=== PATIENT | female | born 1975 | race Asian ===

== ENCOUNTER 2018-06-13 11:20 | Outpatient (CLI) | payer OTHER | END 2018-06-13 11:21 | disposition home or self-care (01) | LOC: BICMAMMO 11:20 | PROVIDERS: ATTEND Family Medicine | DX: Z12.31 Encounter for screening mammogram for malignant neoplasm of breast (principal) | CPT/HCPCS: 77063; 77067 ==

== ENCOUNTER 2018-12-22 09:28 | Outpatient (CLI) | payer OTHER ==
[2018-12-22 11:03] LABS: Hemoglobin 12.5 g/dL (12.0-16.0); Mean Corpuscular HGB CONC 31.6 g/dL (32.0-36.0); Mean Corpuscular Hemoglobin 26.4 pg (27.0-31.0); Mean Corpuscular Volume 83.7 fL (78.0-98.0); Mean Platelet Volume 9.4 fL (7.4-10.4); Platelet Count 239 thou/uL (130-400); RBC Distribution Width 12.7 % (11.5-14.5); Red Blood Cell (RBC) Count 4.73 mill/uL (4.20-5.40); White Blood Cell (WBC) Count 6.6 thou/uL (4.8-10.8)
== END 2018-12-22 09:29 | disposition home or self-care (01) ==
LOC: LABBT 09:28
PROVIDERS: ATTEND Obstetrics & Gynecology
DX: Z01.812 Encounter for preprocedural laboratory examination (principal); D25.9 Leiomyoma of uterus, unspecified
CPT/HCPCS: 85027

== ENCOUNTER 2018-12-23 05:57 | Observation (INO) | payer OTHER ==
[2018-12-22 11:11] LABS: BHCG - Serum Negative (NEGATIVE); Pregs Control Background? CLEAR/WHITE (CLR/WHITE); Pregs Control Bar Appear? YES (CONTROL BAR)
[2018-12-23] MEDS ORDERED: Famotidine/PF 20 mg/2ml Vial ONE (06:13)
[2018-12-23] MEDS ORDERED: Gabapentin 300 MG CAP ONE (06:13)
[2018-12-23] MEDS ORDERED: ceFAZolin Sodium (SDC) 2 GM/100 ML BAG ONE (06:14)
[2018-12-23] MEDS ORDERED: CeleCOXIB 100 MG CAP ONE (06:14)
[2018-12-23] MEDS ORDERED: Bupivacaine HCl 0.5%/Epinephrine 1:200,000/PF 30 ml Vial ONE (06:32)
[2018-12-23] MEDS ORDERED: Fentanyl 100 MCG/2 ML VIAL ONE (07:00)
[2018-12-23] MEDS ORDERED: Tranexamic Acid 1,000 MG/10 ML VIAL ONE (07:34)
[2018-12-23] MEDS ORDERED: Tranexamic Acid 1,000 MG in Sodium Chloride 0.9% 250 ML 250 ML IVPB SCH (08:00)
[2018-12-23] MEDS ORDERED: Ropivacaine 0.2% 550 ML 750 ML NERVE BLCK SCH ×2 (08:00→08:15)
[2018-12-23] MEDS ORDERED: Promethazine HCl 25 MG/ML VIAL SLOW IVP PRN (09:18)
[2018-12-23] MEDS ORDERED: Ketorolac Tromethamine 30 MG/ML VIAL IVP PRN (09:18)
[2018-12-23] MEDS ORDERED: HYDROmorphone 2 MG/ML VIAL SLOW IVP PRN (09:18)
[2018-12-23] MEDS ORDERED: Ondansetron HCl/PF 4 MG/2 ML Vial IVP PRN (09:18)
[2018-12-23] MEDS ORDERED: Promethazine HCl 25 MG/ML VIAL IM PRN (09:18)
[2018-12-23] MEDS ORDERED: Meperidine HCl/PF 25 MG/ML VIAL SLOW IVP PRN (09:18)
[2018-12-23] MEDS ORDERED: Ondansetron PF 4 MG/2 ML Vial IVP PRN (10:43)
[2018-12-23] MEDS ORDERED: diphenhydrAMINE 25 MG CAP PO PRN (10:43)
[2018-12-23] MEDS ORDERED: HYDROcodone/Acetaminophen 5/325 mg Tablet PO PRN (10:43)
[2018-12-23] MEDS ORDERED: Morphine 4 MG/ML VIAL SLOW IVP PRN (10:43)
[2018-12-23] MEDS ORDERED: Bisacodyl 10 MG SUPP PR PRN (10:43)
[2018-12-23] MEDS ORDERED: Zolpidem Tartrate 5 MG TAB PO PRN (10:43)
--- NOTE | 2018-12-23 11:50 | OP ---
DATE OF PROCEDURE: 12/23/2018 PREOPERATIVE DIAGNOSES: 1. Fibroid uterus. 2. Infertility. POSTOPERATIVE DIAGNOSES: 1. Fibroid uterus. 2. Dense pelvic adhesive disease. 3. Endometriosis. PROCEDURES PERFORMED: Robotic assist myomectomy and placement of ON-Q pump. DRILLING FIELD PROFESSIONAL: Maddi Bates MD ANESTHESIA: SHYAMA per Dr. Meredith. COMPLICATIONS: None. EBL: 100 mL. URINE OUTPUT: 1100 mL. OPERATIVE FINDINGS: 1. Enlarged fibroid uterus with dominant 5 to 6 cm fibroid and multiple small fibroids. 2. Dense pelvic adhesive disease with the bladder adhered to the anterior aspect of the uterus and the colon densely adhered to the pelvic sidewalls bilaterally and to the uterus and cul-de-sac. 3. Endometriotic lesions noted. DESCRIPTION OF PROCEDURE: The patient was taken back to the OR with IV fluids running. When she was in the OR, general anesthesia was obtained. The patient was then placed in low dorsal lithotomy position and the abdomen and vagina were prepped and draped in normal fashion for gynecologic laparoscopy. Friedman catheter was placed into bladder and the bladder was drained. An operative speculum was placed into the vagina and cervix was visualized and grasped with single-tooth tenaculum. Cervix was serially dilated to allow for placement of a Lilli-Clifford manipulator tip. The Lilli-Clifford manipulator tip was placed into the uterus, but the intrauterine balloon was not able to inflate. The Lilli-Clifford manipulator was then removed and a Hulka clamp was placed instead. Surgeon's gloves were then changed and attention was turned to the laparoscopic portion of the case. Beginning approximately 2 cm above the umbilicus, local anesthesia was injected into the skin. A 12 mm skin incision was then made with a scalpel. Veress needle was placed through the skin incision and the abdomen was insufflated without difficulty. A 12 mm trocar was then placed through this incision. The laparoscope was placed through the trocar with the above findings noted. The patient was placed in Trendelenburg position. The right and left lower quadrant 8 mm robotic trocars were placed, followed by a right upper quadrant 11 mm trocar placed under direct visualization and using similar technique. After the trocars were all placed, the 12 mm trocar skin incision was extended to approximately 2 cm through the skin to the level of the fascia. A 12 mm trocar was removed and a GelPOINT Mini retractor was placed through this incision. GelPOINT was assembled with a 12 mm trocar through it and capped over the Mini retractor. The abdomen was then insufflated again. The robot was docked to the patient's bedside and all instruments were directed under laparoscopic view. Dense adhesions were noted over the bladder to the uterus. The fallopian tubes and ovaries were difficult to visualize due to the dense pelvic adhesions along the sidewall and the colon was densely adhered to the posterior aspect of the uterus. The fundal portion of the uterus was free from any adhesion, was examined closely and endometriotic lesions were noted throughout the uterine serosa and the bladder reflection. Dilute vasopressin was introduced through a spinal needle through the abdominal wall into the uterine fundus and approximately 10 mL were injected into the most prominent area, where the myomectomy was planned to begin. After vasopressin was injected , monopolar cautery was used to create a semilunar incision over the uterine fundus. Next, with a series of different dissection techniques including monopolar cautery, bipolar cautery, hydrodissection, and blunt dissection, the dominant fundal fibroid was resected from the myometrium. The fibroid was noted to be partially degenerating based on its appearance during the dissection. While removing the dominant 5 to 6 cm fundal fibroid, two smaller approximate 1 to 2 cm fibroids were easily removed. After the myomectomies were complete, the uterine myometrium was irrigated and suctioned dry. Some areas of bleeding were controlled with bipolar cautery. The myometrium was then reapproximated with STRATAFIX suture in a running fashion. After the myometrial layer was closed and reapproximated, the serosal edge of the uterus was reapproximated in an imbricating running stitch with hemostasis noted at the end of the closure. After the myometrium and serosa were closed, the uterus and pelvis were irrigated and suctioned dry. No areas of bleeding were noted. A layer of Tisseal was applied laparoscopically over the uterus and areas of the lysis of adhesions. After this was completed, the laparoscopic bag, which had been placed into the abdomen at the beginning of the case was opened up and the three fibroid specimens were placed into the bag under direct visualization. An ON-Q catheter tip was placed through the abdominal wall and the catheter was pulled down to the anterior aspect of the uterus. The ON-Q catheter tip was primed. The laparoscopic bag was then retrieved through the supraumbilical port after the GelPOINT was removed. All gas was released from the abdomen and the ports were removed. The bag including the three fibroid specimens was then brought out through the supraumbilical port. The Antione retractor was removed. The incisions were irrigated and cleaned. The fascial layer of the supraumbilical port was closed with Vicryl suture in a running fashion. All four skin incisions were closed with Monocryl suture and dressed with Dermabond dressing. The patient tolerated the procedure well. The operative findings were shared with her family after the case. The plan for observation and likely discharge later this evening versus tomorrow morning. Job ID: [id number] [facility]
[2018-12-23] MEDS ORDERED: Ketorolac Tromethamine 30 MG/ML VIAL IVP SCH (12:00)
[2018-12-23] MEDS ORDERED: Fioricet 325/50/40 mg Tablet PO PRN (12:44)
[2018-12-23] MEDS ORDERED: NORETHINDRONE FS SCH (12:45)
[2018-12-23] MEDS ORDERED: ESTRADIOL FS SCH (12:45)
[2018-12-23] MEDS ORDERED: Fluticasone Propionate Nasal Spray 16 gm Bottle NASAL SCH (13:00)
[2018-12-23] MEDS: Sodium Chloride 0.9% 1,000 ML IV SCH ×2 (14:27→22:05)
[2018-12-23] MEDS: Ketorolac Tromethamine 30 MG/ML VIAL IVP SCH ×2 (16:22→22:07)
[2018-12-23] MEDS: Simethicone Chewable 80 MG TAB PO PRN (20:04)
[2018-12-23] MEDS: Azelastine 137 MCG/Spray 30 ML NS SCH (22:11)
[2018-12-24] MEDS: Ketorolac Tromethamine 30 MG/ML VIAL IVP SCH ×2 (03:24→10:56)
[2018-12-24] MEDS: Sodium Chloride 0.9% 1,000 ML IV SCH ×2 (03:31→11:57)
[2018-12-24 08:02] VITALS: BP 116/70; TEMP 97.9
[2018-12-24] MEDS: Simethicone Chewable 80 MG TAB PO PRN (08:15)
--- NOTE | 2018-12-24 08:17 | PDOC.EVN ---
Event Note - Event Note Event Note: POD1 Doing well, pain controlled but request removal of OnQ pump, she thinks it is irritating her skin. Tolerating a regular diet, voiding without difficulty and ambulating. VS WNL GEN NAD Abd soft, NTTP, incisions CDI x 4, ONQ pump removed and disposed Ext no edema A/P: POD1 sp RA myomectomy, doing well. Plan for DC home today, will FU with me in 2 weeks and FU with [facility] after post op care completed.
[2018-12-24] MEDS: HYDROcodone/Acetaminophen 5/325 mg Tablet PO PRN ×2 (08:24→11:49)
[2018-12-24] MEDS ORDERED: Thyroid 60 MG TAB PO SCH (09:00)
[2018-12-24] MEDS ORDERED: OSTERA PO SCH (09:00)
[2018-12-24] MEDS: Azelastine 137 MCG/Spray 30 ML NS SCH (10:36)
--- NOTE | 2018-12-24 22:28 | DIS ---
DATE OF ADMISSION: 12/23/2018 DATE OF DISCHARGE: 12/24/2018 ADMISSION DIAGNOSIS: Planned robotic assisted myomectomy. DISCHARGE DIAGNOSIS: Planned robotic assisted myomectomy. HOSPITAL COURSE: The patient was admitted on 12/23/2018, to undergo robotic-assisted myomectomy. The patient underwent the aforementioned procedure without complications, but with dense adhesive disease and endometriosis noted at the time of surgery. These findings were discussed with her and her . She stayed overnight for observation and pain management. On the day of discharge, she requested her On-Q pain pump to be removed and it was removed at the bedside by myself. Postoperative recovery counseling was provided and the patient was instructed to follow up in my office in 2 weeks. She was discharged home in good condition with prescriptions for Motrin and [place] sent to the pharmacy. All of her questions were answered. Job ID: [id number]
[2018-12-28] MEDS ORDERED: Ibuprofen 800 MG TAB PO SCH ×2 (14:00→22:00)
== END 2018-12-24 12:00 | disposition home or self-care (01) ==
LOC: SDC 05:57 → EDSTATUS 09:30 → 3SE 10:43
PROVIDERS: ADMIT Obstetrics & Gynecology; ATTEND Obstetrics & Gynecology
PROC: 0UB94ZZ Excision of Uterus, Percutaneous Endoscopic Approach (ICD-10-PCS; principal; 2018-12-24)
DX: D25.9 Leiomyoma of uterus, unspecified (principal); N80.0 Endometriosis of uterus; N73.6 Female pelvic peritoneal adhesions (postinfective); E03.9 Hypothyroidism, unspecified; Z79.51 Long term (current) use of inhaled steroids; Z79.899 Other long term (current) drug therapy
CPT/HCPCS: 36415; 84703; 86850; 86900; 86901; 88307; 96361; 96374; 96376; A4306; G0378; J0131; J0670; J0690; J1885; J2795; J3010; J7050; Q9968; S0028